=== PATIENT | female | born 1940 | race Caucasian/White ===

== ENCOUNTER 2016-09-17 15:32 | Emergency (ER) | payer MEDICARE ==
--- NOTE | 2016-09-17 16:17 | RAD ---
HISTORY: Right wrist injury COMPARISONS: None VIEWS: 5, Frontal, lateral, and oblique views of the right wrist with frontal and lateral views of the right hand FINDINGS: BONE DENSITY: Normal. BONES: There is a dorsally dilated and displaced fracture of the distal radial metaphysis, with approximately 60 degrees of dorsal angulation. 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 SOFT TISSUES: Unremarkable. OTHER FINDINGS: None. IMPRESSION: DORSALLY ANGULATED AND DISPLACED FRACTURE OF THE DISTAL RADIAL METAPHYSIS
[2016-09-17] MEDS ORDERED: Ondansetron INJ* 2 MG/ML VIAL IV ONE ×2 (18:12→19:57)
[2016-09-17] MEDS ORDERED: HYDROmorphone* 1 MG/ML 1 ML SYR IV ONE (18:12)
[2016-09-17] MEDS ORDERED: HYDROmorphone* 1 MG/ML 1 ML SYR IV SLOW PU ONE (18:59)
[2016-09-17] MEDS ORDERED: HYDROmorphone* 1 MG/ML 1 ML SYR ONE (19:01)
[2016-09-17] MEDS ORDERED: Ondansetron INJ* 2 MG/ML VIAL ONE (19:58)
[2016-09-17] MEDS ORDERED: PROCHLORPERAZINE INJ 5 MG/ML 2 ML VIAL IV PRN (20:31)
[2016-09-17] MEDS ORDERED: PROCHLORPERAZINE INJ 5 MG/ML 2 ML VIAL ONE (20:42)
[2016-09-17 20:48] VITALS: BP 132/81
[2016-09-17] MEDS ORDERED: Tetan/Diph/Pertus SYR(Tdap)* 0.5 ML SYR(BOOSTRIX) use SYR IM ONE (21:01)
--- NOTE | 2016-09-17 21:23 | CONS ---
CC: PCP * CONSULTATION REPORT: DATE OF CONSULTATION: 09/17/16 - EMERGENCY DEPT ATTENDING: Mely Glover MD CHIEF COMPLAINT: Right wrist pain. HISTORY OF PRESENT ILLNESS: Briefly, Toyin is a 76-year-old right hand dominant female who was coming here out of cabin. She was unpacking when she lost her balance and tripped. She dropped the suitcase and landed hard on right hand. She also struck her face. She denies any loss of consciousness. She denies any numbness or tingling. She otherwise has been in her usual state of health, although recently she had a syncopal episode for which she is being worked up. She is from [place]. Her , who is an internal medicine physician there , is also present with her as well as her son. They are supposed to stay here until Wednesday morning. PAST MEDICAL HISTORY: Significant for high blood pressure, diabetes, recent syncopal episode, factor V Leiden, history of blood clots, anxiety, GERD. PAST SURGICAL HISTORY: Significant for left total hip replacement, appendectomy , total abdominal hysterectomy, oophorectomy, partial hemicolectomy for diverticulosis. ALLERGIES: To CARVEDILOL and PENICILLINS, possibly AVELOX. REVIEW OF SYSTEMS: Significant for abrasion to the right cheek and hand, right wrist pain with obvious deformity. No hip pain. She has no numbness or tingling. She does have a recent history of a syncopal episode, which is not related to this incident. Otherwise, remainder of systems is negative. FAMILY HISTORY: Negative. SOCIAL HISTORY: She is retired. She lives in [place] with her , who is a practicing internal medicine physician for about 50 years. Her family is based in [place] so is her orthopedic surgeon. MEDICATIONS: Include: 1. Lorazepam. 2. Omeprazole. 3. Metformin. PHYSICAL EXAMINATION: General: She is in no acute distress. She is well- developed, well-nourished. She is alert and oriented x3. She has an abrasion on her right cheek as well as her eyebrow. She is EOMI. Chest: She is respiring easily on the bed. Her abdomen is soft and nontender. Her heart is regular rate and rhythm. Examination of the right arm demonstrates she is nontender to palpation at the shoulder and elbow. She has an obvious deformity of the right wrist. The skin is intact. She is able to able to flex and extend her digits. She is sensate to light touch about the first dorsal webspace , index and long finger, and ulnar aspect of the small finger. She has a 2+ radial pulse. IMAGING: X-rays were reviewed that demonstrate a displaced extraarticular fracture of the distal radius with 100% displacement, which is dorsally displaced. It may have some intraarticular extension, it is a very distal fracture. ASSESSMENT AND PLAN: She has a distal radius fracture with unacceptable angulation with a 100% displacement that does have comminution and may have intraarticular segments. We discussed that this is unaffectedly angulated. We talked about a closed reduction. She verbally agreed. After a miniature pause , I did a hematoma block in the dorsum of the wrist with 10 cc of 1% lidocaine plain. She tolerated this well after which I placed her in a traction for approximately 20 minutes. By using ligamentotaxis and with IV analgesia, we did a closed reduction of her wrist. I then placed her in a long arm splint. Her post splint exam was unchanged. We reviewed that she will need followup either in [place] or at our offices, but she is ruby to [place], she is going to have an echocardiogram on Wednesday and was planning to go back to [place] on Wednesday. I am happy to see her back otherwise on an as-needed basis. I did discuss that this may be surgical if she loses reduction and she needs to be seen by someone in the next week. She verbalized understanding. She tolerated the procedure well. I will see the patient back on an as-needed basis. [id number]/[facility] #: [id number] SHAN
--- NOTE | 2016-09-17 21:23 | RAD ---
HISTORY: Fall, facial trauma COMPARISONS: None TECHNIQUE: Multiple contiguous axial CT scans were obtained of the head without intravenous contrast. FINDINGS: HEMORRHAGE/INFARCT: There is no hemorrhage or acute infarct. MASSES/SHIFT: There is no mass or shift. EXTRA-AXIAL SPACES: There are no extra-axial fluid collections. SULCI AND VENTRICLES: The sulci and ventricles are normal in size and position for the patient's stated age. CEREBRUM: There are no focal parenchymal abnormalities. BRAINSTEM: There are no focal parenchymal abnormalities. CEREBELLUM: There are no focal parenchymal abnormalities. VESSELS: The vessels are grossly normal. PARANASAL SINUSES: There is near-fluid level within the sphenoid sinus ORBITS: The orbits are unremarkable. BONES AND SOFT TISSUE: No bone or soft tissue abnormalities are noted. OTHER: None IMPRESSION: NO ACUTE INTRACRANIAL PATHOLOGY. MILD SINUS MUCOSAL INFLAMMATORY DISEASE, WITH AN AIR-FLUID LEVEL IN THE SPHENOID SINUS. IN THE CORRECT CLINICAL SETTING, THIS MAY REPRESENT ACUTE SINUSITIS
[2016-09-17] MEDS ORDERED: NS 0.9% 1000 ML* 1,000 ML IV ONE (21:51)
[2016-09-17] MEDS ORDERED: HYDROcodone/ACETAMIN 5-325 MG* 1 TAB ONE (23:13)
[2016-09-17] MEDS ORDERED: HYDROcodone/ACETAMIN 5-325 MG* 1 TAB PO SCH (23:45)
--- NOTE | 2016-09-18 13:01 | ED ---
mic Aleman Timothy, scribed for Robby Mckeon MD on 09/17/16 at 1807 . Upper Extremity Pain - HPI Summary HPI Summary: Toyin Chaney is a 76 yo female presenting to [facility] with mechanical fall and 10/ 10 pain in her right wrist S/P the fall. She also struck the right side of her face, and denies any LOC. She is no on any blood thinners. Her is present in room. She denies any OLIVAS. Her MHx includes macular degeneration. - History of Current Complaint Chief Complaint: EDExtremityUpper Stated Complaint: FELL,FACIAL LAC,RT WRIST PAIN Time Seen by Provider: 09/17/16 17:59 Hx Obtained From: Patient Mechanism Of Injury: Fall From A Standing Position Onset/Duration: Started Hours Ago Timing: Constant Severity Initially: Moderate Severity Currently: Moderate Pain Location: Wrist - right Aggravating Factor(s): Movement - Allergies/Home Medications Allergies/Adverse Reactions: Allergies Allergy/AdvReac Type Severity Reaction Status Date / Time Carvedilol [From Coreg] Allergy Unknown Verified 09/17/16 18:01 Reaction Details Penicillins [PCN] Allergy Unknown Verified 09/17/16 18:01 Reaction Details PMH/Surg Hx/FS Hx/Imm Hx Infectious Disease History: No Infectious Disease History: Denies: Traveled Outside the [place] in Last 30 Days - Family History Known Family History: Positive: Cardiac Disease, Diabetes Negative: Hypertension - Social History Alcohol Use: None Substance Use Type: Reports: None Smoking Status (MU): Never Smoked Tobacco Review of Systems Constitutional: Negative Eyes: Negative ENT: Negative Cardiovascular: Negative Respiratory: Negative Gastrointestinal: Negative Genitourinary: Negative Positive: Other - right wrist pain Skin: Negative Neurological: Negative Psychological: Normal All Other Systems Reviewed And Are Negative: Yes Physical Exam Triage Information Reviewed: Yes Vital Signs On Initial Exam: Initial Vitals Temp Pulse Resp BP Pulse Ox 97.9 F 87 20 162/99 98 09/17/16 15:39 09/17/16 15:39 09/17/16 15:39 09/17/16 15:39 09/17/16 15:39 Vital Signs Reviewed: Yes Appearance: Positive: Well-Appearing, Well-Nourished, Pain Distress - mild Skin: Positive: Warm, Skin Color Reflects Adequate Perfusion, Dry, Other - swelling over the right zygomatic arch with associated abrasion Head/Face: Positive: Normal Head/Face Inspection Eyes: Positive: Normal ENT: Positive: Normal ENT inspection Neck: Positive: Supple, Nontender Respiratory/Lung Sounds: Positive: Clear to Auscultation, Breath Sounds Present Cardiovascular: Positive: RRR Abdomen Description: Positive: Nontender, Soft Bowel Sounds: Positive: Present Musculoskeletal: Positive: Other - obvious deformity and swelling in the right wrist. Neurological: Positive: Normal Psychiatric: Positive: Normal, Affect/Mood Appropriate Diagnostics - Vital Signs Vital Signs Temp Pulse Resp BP Pulse Ox 09/17/16 15:42 98.1 F 86 20 162/99 98 09/17/16 15:39 97.9 F 87 20 162/99 98 - Laboratory Lab Statement: Any lab studies that have been ordered have been reviewed, and results considered in the medical decision making process. - Radiology R wrist XR Xray Interpretation: Positive (See Comments) - IMPRESSION: DORSALLY ANGULATED AND DISPLACED FRACTURE OF THE DISTAL RADIAL METAPHYSIS Radiology Interpretation Completed By: Radiologist - CT Brain CT Interpretation: No Acute Changes - IMPRESSION: NO ACUTE INTRACRANIAL PATHOLOGY. MILD SINUS MUCOSAL INFLAMMATORY DISEASE, WITH AN AIR-FLUID LEVEL IN THE SPHENOID SINUS. IN THE CORRECT CLINICAL SETTING, THIS MAY REPRESENT ACUTE SINUSITIS CT Interpretation Completed By: Radiologist Re-Evaluation - Re-Evaluation First Eval Re-Evaluation Time: 20:26 Change: Unchanged Comment: Pt is still nauseated. Her abrasion was treated with steristrips. Course/Dx - Course Assessment/Plan: Toyin Chaney is a 76 yo female presenting to [facility] with 10/10 pain in her right wrist S/P mechanical fall earlier today. Her medication list was reviewed this visit. In the ED course she recieved zofran for nausea control and dilaudid for pain management, as well as compazine. Her R wrist XR and R Hand XR both suggest dorsally angulated and displaced fracture of the distal radial metaphysis. Her Brain CT suggests no acute intracranial pathology. After clinical examination and review of her imaging studies as well as discussion with Dr. Holloway she will be discharged home with right wrist fracture, facial contusion and abrasion, and head injury with appropriate instructions. - Diagnoses Provider Diagnoses: Wrist fracture, right, Facial contusion, Facial abrasion, Head injury - Physician Notifications Discussed Care of Patient With: Zeinab Holloway - Discussed Pt condition, she will evaluate Pt. Time Discussed With Above Provider: 18:11 Discharge - Discharge Plan Condition: Stable Disposition: HOME Prescriptions: HYDROcodone/ACETAMIN 5-325 MG* [[place] 5-325 TAB*] 1 tab PO Q6H PRN #20 tab MDD 4 PRN Reason: Pain Patient Education Materials: Wrist Fracture in Adults (ED), Facial Contusion ( ED), Abrasion (ED), Head Injury (ED) Referrals: [facility] [place] [facility]IAN REFERRAL [Outside] - 2 Days Additional Instructions: Please follow up with your primary care physician regarding your visit to the emergency department today. Return to the emergency department with any new or recurring symptoms. The documentation as recorded by the mic clay Timothy accurately reflects the service I personally performed and the decisions made by me, Robby Mckeon MD.
== END 2016-09-17 23:29 | disposition home or self-care (01) ==
LOC: ED 15:32
DX: S62.101A Fracture of unspecified carpal bone, right wrist, initial encounter for closed fracture (principal); S00.83XA Contusion of other part of head, initial encounter; S00.81XA Abrasion of other part of head, initial encounter; S09.90XA Unspecified injury of head, initial encounter; W19.XXXA Unspecified fall, initial encounter; Y93.9 Activity, unspecified; Y92.9 Unspecified place or not applicable; Y99.9 Unspecified external cause status
CPT/HCPCS: 70450; 90715; 96374; 96375; 99283; J0780; J1170; J2405